=== PATIENT | female | born 1955 | race Caucasian/White ===

== ENCOUNTER 2019-01-16 12:58 | Day surgery (SDC) | payer OTHER ==
[2019-01-16] MEDS ORDERED: hydrALAzine 20 MG INJ (14:57)
[2019-01-16] MEDS ORDERED: PROPOFOL 20 ML (15:58)
== END 2019-01-16 15:30 | disposition home or self-care (01) ==
LOC: GIL 12:58
DX: K59.00 Constipation, unspecified (principal); E11.9 Type 2 diabetes mellitus without complications; E78.5 Hyperlipidemia, unspecified
CPT/HCPCS: 45378; 82962